=== PATIENT | female | born 1995 | race African-American/Black ===

== ENCOUNTER 2017-05-05 16:28 | Emergency (ER) | payer OTHER ==
[2017-05-05 16:45] VITALS: BP 123/72; PULSE 95; TEMP 99.3; BMI 34.3
[2017-05-05] MEDS ORDERED: KETOROLAC TROMETHAMINE 60 MG/2 ML VIAL IM ONE (18:07)
[2017-05-05] MEDS ORDERED: KETOROLAC TROMETHAMINE 60 MG/2 ML VIAL ONE (18:51)
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
== END 2017-05-05 19:57 | disposition home or self-care (01) ==
LOC: JERFT 16:28
PROC: 3E0233Z Introduction of Anti-inflammatory into Muscle, Percutaneous Approach (ICD-10-PCS; principal; 2017-05-05)
DX: S13.4XXA Sprain of ligaments of cervical spine, initial encounter (principal); V43.54XA Car driver injured in collision with van in traffic accident, initial encounter; Y92.414 Local residential or business street as the place of occurrence of the external cause; Y93.9 Activity, unspecified; Y99.8 Other external cause status
CPT/HCPCS: 84703; 99281-25